=== PATIENT | female | born 1950 | race Caucasian/White ===

== ENCOUNTER → 2016-11-28 | Outpatient (CLI) | payer MEDICARE, BC ==
[~2016-11-28] MED LIST: ACTONEL; ARIMIDEX1 MG; ASPIRIN325 M1 PO; CALCIUM 600 +1 EA10 PO; FISH OIL 1,0001 CAP; FLONASE16 GM; FOLIC ACID; LANSOPRAZOLE30 M2 PO; LIPITOR; LISINOPRIL PO; MACROBID 100 M100 MG; MAG-OXIDE400 MG; MAGNESIUM500 MG PO; MULTI VITAMIN1 EACH PO; MULTIVITAMIN W/1 TAB; OYSTER CALCIUM500 MG; PERCOCET 5-3251 TAB PO; PREVACID; PREVIDENT56 G1 DT; PROBIOTIC1 EAC3 PO; SIMVASTATIN20 MG PO; SINGULAIR; ZYRTEC10 M2 PO
[2016-11-28 09:55] LABS: ALBUMIN SERUM 4.6 g/dL (3.5-5.0); BILIRUBIN,TOTAL 1.3 mg/dL (0.2-2.0); BUN/CREATININE RATIO 21.11; CALCIUM SERUM 9.9 mg/dL (8.4-10.2); CREATININE SERUM 0.9 mg/dL (0.6-1.4); GLOM FILT RATE Estimated 65.7 mL/min (>60); POTASSIUM 4.1 mmol/L (3.5-5.1); PROTEIN TOTAL SERUM 7.6 g/dL (6.0-8.3)
== END | disposition home or self-care (01) ==
LOC: SLAB 08:05
PROVIDERS: Internal Medicine Endocrinology, Diabetes & Metabolism
DX: I25.10 Atherosclerotic heart disease of native coronary artery without angina pectoris (principal); E78.5 Hyperlipidemia, unspecified
CPT/HCPCS: 36415; 80053; 80061